=== PATIENT | female | born 2000 | race Caucasian/White ===

== ENCOUNTER 2020-09-27 09:28 | Outpatient (REF) | payer BC, SELFPAY ==
[2020-09-28 15:11] LABS: GC Result Negative (Negative)
[2020-09-28 16:43] LABS: Chlamydia Result Positive (Negative)
== END 2020-09-27 09:29 | disposition home or self-care (01) ==
LOC: NCHCN 09:28
PROVIDERS: PCP Family Medicine; Visit Provider Registered Nurse
DX: Z00.00 Encounter for general adult medical examination without abnormal findings (principal); Z11.3 Encounter for screening for infections with a predominantly sexual mode of transmission
CPT/HCPCS: 87491; 87591

== ENCOUNTER 2020-12-06 12:55 | Outpatient (REF) | payer BC, SELFPAY ==
--- NOTE | 2020-12-06 10:00 | PAPFT_PTH ---
PATIENT: Betty Saleem LOC: [id number] AGE/SX: 20/F ROOM: RE12/06/[address]: Kiara Moon : 2000 BED: DIS: 12/06/2020 SPEC #: [id number] RECD: 12/06/20 17:27 STATUS: TIMMY REDino #: [id number] DARRIAN: 12/06/20 10:[address]: Kiara Moon DEPT: [facility] Cytology RECD BY: Kelly Martinez Tissues: 1 - CX/ENDOCX FOR PAP SMEARS Procedures: PAP THIN PREP/[facility] Screening Comments: [id number] (CHLAMYDIA/GC)
[2020-12-07 15:26] LABS: Chlamydia Result Negative (Negative); GC Result Negative (Negative)
== END 2020-12-06 12:56 | disposition home or self-care (01) ==
LOC: NCHCN 12:55
PROVIDERS: PCP Family Medicine; Visit Provider Family Medicine
DX: Z00.00 Encounter for general adult medical examination without abnormal findings (principal); Z12.4 Encounter for screening for malignant neoplasm of cervix; Z11.3 Encounter for screening for infections with a predominantly sexual mode of transmission
CPT/HCPCS: 87491; 87591; 88142

== ENCOUNTER 2021-04-10 19:07 | Outpatient (REF) | payer BC, SELFPAY ==
[2021-04-10 20:50] LABS: Anion Gap 9.7 mmol/L (3-11); BUN 9 mg/dL (7-18); CO2 29.3 mmol/L (21.0-32.0); CREATININE 0.8 mg/dL (0.55-1.02); Calcium 9.7 mg/dL (8.5-10.1); Chloride 102 mmol/L (98-107); Glucose 71 mg/dL (74-106); Potassium 3.6 mmol/L (3.5-5.1); Sodium 141 mmol/L (136-145)
== END 2021-04-10 19:08 | disposition home or self-care (01) ==
LOC: NCHCN 19:07
PROVIDERS: PCP Family Medicine; Visit Provider Family Medicine
DX: I44.0 Atrioventricular block, first degree (principal)
CPT/HCPCS: 80048